=== PATIENT | male | born 1945 | race Two or more races ===

== ENCOUNTER 2017-04-11 09:31 | Day surgery (SDC) | payer MEDICARE ==
[2017-04-06 09:51] VITALS: BMI 26.2
[~2017-04-11 09:31] MED LIST: INDOMETHACIN 50MG SUPPOSITORY RECTAL ONE; LACTATED RINGERS 1,000 ML IV NR; LACTATED RINGERS 1,000 ML IV SCH; LEVOFLOXACIN 500MG-D5W PMX 500 MG in DEXTROSE/WATER 1 100ML.BAG IVPB NR
[2017-04-11 10:07] LABS: Anisocytosis Slight; Basophils # (A) 0.1 k/uL (0-0.2); Basophils % (A) 1 %; Eosinophils # (A) 0.2 k/uL (0-0.7); Eosinophils % (A) 2 %; HCT 50.9 % (39.0-53.0); HGB 15.4 gm/dL (13.0-17.5); Hypochromasia Slight; Lymphocytes # (A) 1.5 k/uL (1.0-4.8); Lymphocytes % (A) 12 %; MCHC 30.3 g/dL (31.0-37.0); MCV 92.4 fL (80.0-100.0); Mean Platelet Volume 7.1; Monocytes # (A) 0.5 k/uL (0-1.0); Monocytes % (A) 4 %; Neutrophils # (A) 10.1 k/uL (1.3-7.7); Neutrophils % (A) 80 %; Platelet Count 325 k/uL (150-450); RDW 16.6 % (11.5-15.5); WBC 12.5 k/uL (3.8-10.6)
[2017-04-11] MEDS ORDERED: LIDOCAINE 1% 20 ML VIAL (10MG/ML) FOR IV START INTRADERMA ONE (10:09)
[2017-04-11 10:20] LABS: INR 1.1 (<1.2); Prothrombin Time 10.3 sec (9.0-12.0)
[2017-04-11 10:22] LABS: ALT 130 U/L (21-72); AST 101 U/L (17-59); Albumin 4.1 g/dL (3.5-5.0); Alkaline Phosphatase 254 U/L (38-126); Anion Gap 13 mmol/L; Blood Urea Nitrogen 34 mg/dL (9-20); Calcium 10.2 mg/dL (8.4-10.2); Carbon Dioxide 30 mmol/L (22-30); Chloride 102 mmol/L (98-107); Glucose 128 mg/dL (74-99); Potassium 4.5 mmol/L (3.5-5.1); Sodium 145 mmol/L (137-145); Total Protein 8.3 g/dL (6.3-8.2)
[2017-04-11 10:37] LABS: Partial Thromboplastin Time 25.7 sec (22.0-30.0)
[2017-04-11] MEDS ORDERED: LIDOCAINE 1% INJ 10MG/ML (20 ML MDV) ONE (10:55)
[2017-04-11] MEDS ORDERED: KETAMINE 10 MG/ML 20 ML VIAL ONE (10:55)
[2017-04-11] MEDS ORDERED: diphenhydrAMINE 50 MG/ML 1 ML VIAL ONE (10:55)
[2017-04-11] MEDS ORDERED: PROPOFOL 10 MG/ML 20 ML VIAL IV ONE (10:55)
[2017-04-11] MEDS ORDERED: IOHEXOL 300 MG/ML 50 ML BOTTLE MISCELLANE ONE (11:43)
--- NOTE | 2017-04-11 12:13 | P.PCN ---
Date of Procedure: 04/11/17 Procedure(s) Performed: Procedure: Endoscopic retrograde cholangiography and replacement of biliary stent. Preoperative diagnosis: Jaundice and history of CBD stricture. Postoperative diagnosis: 1. Partial migration of the biliary stent into the duodenum. 2. Removal of the biliary stent and replacement with the 7-[place] 5 cm pigtail stent. 3. Distal common bile duct stricture as previously described. Preparation sedation: Was provided by anesthesia. Brief clinical history: The patient is a 71-year-old male with past medical history of hypertension was transferred from [facility] last month with history of elevated liver enzymes, jaundice, dark colored urine 2 weeks. Patient was found to have a distal common bile duct stricture which was stented around 03/22/2017. Brushing for cytology was negative and his CEA and CA 19-9 were normal. The patient had initial improvement in his bilirubin however he came to see me in the office last week with worsening jaundice and itching. I suspected blockage or migration of the stent. The patient did not want to go to a tertiary facility at this time for endoscopic ultrasound and possible Wallstent expandable stent placement and instead wanted to have the stent replaced locally at this point in time. He denied any abdominal pains, fever, chills or any nausea, vomiting or hematemesis. Procedure: With the patient in the prone position and after informed consent and adequate sedation, we passed the Olympus video duodenoscope down the esophagus into the stomach then passed it through the pylorus into the duodenum and brought the papilla area into view. The current biliary stent appeared to have migrated to a good distance into the duodenal lumen. This was also confirmed by fluoroscopy. Accordingly, I captured the stent with the snare and removed it by withdrawing the endoscope. I then reintroduced the endoscope back into the duodenum. I cannulated and injected dye into common bile duct and exchanged the catheter with the guidewire in the usual fashion. The common bile duct stricture was visualized and it appeared unchanged. Subsequently, I passed a 7-[place] 5 cm [place] biliary stent over the guidewire and once it was in appropriate position it was left in place and the guidewire was withdrawn and the endoscope was withdrawn. The patient tolerated the procedure well. Plan: I summarized the findings to the patient and his family. Will repeat his liver enzymes next week and further plans will then be made based on his course. I will keep you updated on his progress.
--- NOTE | 2017-04-11 13:39 | FL ---
EXAMINATION TYPE: FL ERCP biliary duct only DATE OF EXAM: 04/11/2017 CLINICAL HISTORY: Stent exchange for common bile duct stricture TECHNIQUE: Fluoroscopy. COMPARISON: None. FINDINGS/IMPRESSION: Fluoroscopic guidance was provided during procedure performed by Dr. Lynch. A to tisha of 2 minutes and 20 seconds of fluoroscopic time was utilized during the procedure and 1 spot oskar ges was acquired demonstrating a common bile duct stent.
[2017-04-12 23:00] VITALS: BP 173/84; PULSE 59; TEMP 98.6
== END 2017-04-11 13:36 | disposition home or self-care (01) ==
LOC: ORWHC2ENDO 09:31
DX: K83.1 Obstruction of bile duct (principal); T85.898A Other specified complication of other internal prosthetic devices, implants and grafts, initial encounter; F17.200 Nicotine dependence, unspecified, uncomplicated; Z79.899 Other long term (current) drug therapy; Z88.5 Allergy status to narcotic agent; Z88.0 Allergy status to penicillin; Z88.2 Allergy status to sulfonamides; Z88.6 Allergy status to analgesic agent; Z91.041 Radiographic dye allergy status
CPT/HCPCS: 80053; 85025; 85610; 85730; 74328; 43276; J1200; J1956; J2001; J2704; Q9967; C1769; C2625; 43260